=== PATIENT | female | born 1960 | race Caucasian/White ===

== ENCOUNTER 2022-11-04 08:20 | Day surgery (SDC) | payer BC ==
[~2022-11-04] VITALS: Ht 162.6 cm; Wt 68.1 kg
[~2022-11-04 08:20] MED LIST: AMLODIPINE BESYL5 MG PO; ASPIR 8181 MG PO; ATORVASTATIN CA20 MG PO; CLOPIDOGREL75 MG PO; METOPROLOL SUCC50 MG PO
--- NOTE | 2022-11-04 11:18 | NUR ---
11/04/22 1118 Stephanie Sanchez 1055 PT ARRIVED TO PACU ON 10L VIA MASK, ORAL AIRWAY IN PLACE. 1056 PT REACHING AND GRABBING AIRWAY, AIRWAY REMOVED. 1058 O2 MASK REMOVED DUE TO PT PULLING IT OFF. PT COUGHED AND CLEAR LIQUID NOTED FROM MOUTH, PT REPORTS "BILE, YUCK." EMEISIS BAG GIVEN AND PT THROWING UP IN BAG, CLEAR/YELLOW LIQUID NOTED. PT SITTING UN IN BED, HOB INCREASED. 1102 PT ROLLED TO BACK AND MOVED HERSELF UP IN BED. PT REPORTS NAUSEA IS BETTER, "I HAVE REFLUX RIGHT NOW." 1116 MD AT BEDSIDE TALKING TO PT, MD REPORTS HE SPOKE WITH HER
--- NOTE | 2022-11-04 16:32 | OR ---
[facility] [address], [place] [address] Signed DATE OF OPERATION: 11/04/2022 SURGEON: Wiliam Savage MD PREOPERATIVE DIAGNOSES: 1. Squamous cell carcinoma of the vagina in 2012, status post radiation and chemotherapy. 2. Negative colonoscopy in 2012 per the patient. 3. Chronic diarrhea associated with blood after the radiation therapy. 4. Sister with greater than 19 colonic polyps removed. 5. Daily Plavix for peripheral arterial disease. POSTOPERATIVE DIAGNOSES: 1. Minimal pandiverticulosis. 2. 4 mm polyp at 12 cm (distal sigmoid colon). 3. 4 mm polyp at 10 cm (rectum). 4. Minimal radiation proctitis. PROCEDURE: Colonoscopy with hot biopsy. ESTIMATED BLOOD LOSS: None. INDICATIONS: Nicole is a 62-year-old female asked to see me for followup colonoscopy. She talked about her negative colonoscopy back in [address] [facility]. This was negative per the patient. That same year, she underwent radiation and chemotherapy for squamous cell carcinoma of the vagina. Since then, she has had chronic diarrhea with associated blood. Apparently, her sister said more than 19 colonic polyps removed up in [place], [place]. Nicole also requires her daily Plavix because of her peripheral arterial disease. In the office, I had given her a pamphlet on colonoscopy. We had reviewed the nature of the test. There is risk including, but not limited to gas bloating, crampy abdominal pain, bleeding, perforation requiring surgery, and missed diagnosis. We also reviewed the need for monitored anesthesia care given her significant past medical history as well as her COPD and alcohol use. She had expressed understanding and wished to proceed. PROCEDURE NOTE: Nicole was taken into our endoscopy suite and placed in the left lateral decubitus position. She was given monitored anesthesia care with propofol per our nurse Electronically Signed By: WILIAM SAVAGE MD 11/04/22 1632 PATIENT NAME: NICOLE AMAYA OPERATIVE REPORT DATE OF : 62 REPORT #: [id number] PHYSICIAN: WILIAM SAVAGE MD PCP: NICHOLAS FRYE DO REPORT IS CONFIDENTIAL AND NOT TO BE RELEASED WITHOUT AUTHORIZATION [facility] [address], [place] [address] Signed water treatment plant mechanic. A digital rectal exam was performed and this did show some small external hemorrhoids. The adult colonoscope was introduced and advanced under direct visualization of the camera. It took just a few minutes to get through the colon and into her cecum. Her prep was quite good. We could easily see the appendiceal orifice and the ileocecal valve. The scope was then slowly withdrawn. We took several pictures throughout for photodocumentation. She does have diverticula on the right and left side. They are moderate in size, few in number, and scattered about. She had two tiny polyps removed with the help of hot biopsy forceps. We tried a couple of times to retroflex the camera in her rectum without success. Of course, that irritated the distal half of her rectum and cause some bleeding. After this, the gas was suctioned out and the colonoscope removed. Nicole tolerated the procedure quite well. RECOMMENDATIONS: I will see Nicole back in my office in 7 to 14 days to review her results. Wiliam Savage MD ALB/MODL /[id number] cc: MD Nicholas White DO Copies: WILIAM SAVAGE MD, ARIAN DO ~ Electronically Signed By: WILIAM SAVAGE MD 11/04/22 1632 PATIENT NAME: NICOLE AMAYA OPERATIVE REPORT DATE OF : 62 REPORT #: [id number] PHYSICIAN: WILIAM SAVAGE MD PCP: NICHOLAS FRYE DO REPORT IS CONFIDENTIAL AND NOT TO BE RELEASED WITHOUT AUTHORIZATION
== END 2022-11-04 11:42 | disposition home or self-care (01) ==
LOC: DS 08:20 → OPS 08:20
PROVIDERS: ATTEND Colon & Rectal Surgery
PROC: 0DBN8ZX Excision of Sigmoid Colon, Via Natural or Artificial Opening Endoscopic, Diagnostic (ICD-10-PCS; 2022-11-04)
PROC: 0DBP8ZX Excision of Rectum, Via Natural or Artificial Opening Endoscopic, Diagnostic (ICD-10-PCS; principal; 2022-11-04 09:45)
DX: K52.9 Noninfective gastroenteritis and colitis, unspecified (principal); K63.5 Polyp of colon; K57.30 Diverticulosis of large intestine without perforation or abscess without bleeding; K62.7 Radiation proctitis; K64.4 Residual hemorrhoidal skin tags; I73.9 Peripheral vascular disease, unspecified; E78.00 Pure hypercholesterolemia, unspecified; I10 Essential (primary) hypertension; J44.9 Chronic obstructive pulmonary disease, unspecified; F10.90 Alcohol use, unspecified, uncomplicated; Z83.71 Family history of colonic polyps; Z85.44 Personal history of malignant neoplasm of other female genital organs
CPT/HCPCS: J2704; J7121